=== PATIENT | male | born 1940 | race Caucasian/White ===

== ENCOUNTER 2017-09-01 08:18 | Emergency (ER) | payer MEDICARE, OTHER ==
[2017-09-01 08:18] VITALS: BMI 26.6
[2017-09-01 08:29] VITALS: RESP 20
--- NOTE | 2017-09-01 08:54 | C.PDOC ---
History Of Present Illness 77 y/o male with a history of diabetes, low BP, and a large prostate presents to the ED for chest pain. Patient reports last night he ate late and went to bed late. Upon waking he vomited once and felt dizzy. He reports feeling chest and back pain. His daughter took his blood pressure which showed to be low. She gave him nitro and called the ambulance. EMS arrived and found him to be hypotensive and diaphoretic. EMS gave him Aspirin. EMS took an EKG which showed normal sinus rhythm with no ST elevations. PMD: Dr. Mendoza Time Seen by Provider: 09/01/17 08:23 Chief Complaint (Nursing): Chest Pain History Per: Patient, EMS, Family (daughter) History/Exam Limitations: no limitations Onset/Duration Of Symptoms: Hrs Current Symptoms Are (Timing): Still Present Quality: "Pain" Associated Symptoms: Diaphoresis Recent travel outside of the [place]: No Past Medical History Reviewed: Historical Data, Nursing Documentation, Vital Signs Vital Signs: Last Vital Signs Temp 97.5 F L 09/01/17 14:20 Pulse 58 L 09/01/17 14:20 Resp 20 09/01/17 14:20 BP 124/69 09/01/17 14:20 Pulse Ox 98 09/01/17 14:20 - Medical History PMH: Asthma, Benign Prostatic Hyperplasia, Diabetes, Hypercholesterolemia Denies: Chronic Kidney Disease Surgical History: No Surg Hx Family History: States: Unknown Family Hx - Social History Hx Tobacco Use: No Hx Alcohol Use: No Hx Substance Use: No - Immunization History Hx Tetanus Toxoid Vaccination: Yes Hx Influenza Vaccination: Yes Hx Pneumococcal Vaccination: No Review Of Systems Except As Marked, All Systems Reviewed And Found Negative. Constitutional: Positive for: Sweats Cardiovascular: Positive for: Chest Pain, Other (low BP) Gastrointestinal: Positive for: Vomiting Musculoskeletal: Positive for: Back Pain Neurological: Positive for: Dizziness Physical Exam - Physical Exam Appears: Non-toxic, No Acute Distress Skin: Normal Color, Diaphoretic Head: Atraumatic, Normacephalic Eye(s): bilateral: Normal Inspection, PERRL, EOMI Neck: Normal Chest: Other (slightly reproducable chest pain) Cardiovascular: Rhythm Regular, No Murmur Respiratory: Normal Breath Sounds Gastrointestinal/Abdominal: Normal Exam, Soft, No Tenderness, No Distention Back: Normal Inspection, No CVA Tenderness Extremity: Normal ROM, No Pedal Edema Neurological/Psych: Oriented x3 ED Course And Treatment - Laboratory Results Result Diagrams: 09/01/17 08:58 09/01/17 08:58 Interpretation Of ECG: normal sinus rhythm, no ST elevations or depressions Rate From EC O2 Sat by Pulse Oximetry: 99 (RA) Pulse Ox Interpretation: Normal Medical Decision Making Medical Decision Making: Time: 08:21 Impression: chest pain, abdominal pain, r/o cardiac versus gastric cause Initial Plan: * EKG * B-Type Natriuretic * CMP * Troponin I Stat * CBC * Chest X-Ray Case discussed Dr. Padron. Patient has normal EKG and normal troponin levels. Plan is to repeat troponin and EKG. Possibly discharge home.second troponin wnl. Patient asymptomatic. cleared for discharge Scribe Attestation: Documented by Gene Nassar acting as a scribe Cyndie Trevino MD. MD Traoreibe Attestation: All medical record entries made by the Scribe were at my direction and personally dictated by me. I have reviewed the chart and agree that the record accurately reflects my personal performance of the history, physical exam, medical decision making, and the department course for this patient. I have also personally directed, reviewed, and agree with the discharge instructions and disposition. Disposition Discussed With : Hermelinda Padron Counseled Patient/Family Regarding: Studies Performed, Need For Followup - Disposition Disposition: HOME/ ROUTINE Disposition Time: 13:49 Condition: GUARDED Forms: [facility] ([place]) - POA Present On Arrival: None - Clinical Impression Clinical Impression: Vomiting
[2017-09-01 09:01] LABS: BASO # 0.1 K/uL (0.0-0.2); BASO % 0.6 % (0.0-2.0); EOS % 0.1 % (0.0-4.0); HEMOGLOBIN 14.1 g/dL (12.0-18.0); LYMPH # 1.3 K/uL (1.0-4.3); LYMPH % 12.9 % (20.0-40.0); MEAN CELL VOLUME 89.5 fL (80.0-94.0); MEAN CORPUSCULAR HEMOGLOBIN 30.4 pg (27.0-31.0); MEAN PLATELET VOLUME 9.7 fL (7.2-11.7); MONO # 0.5 K/uL (0.0-0.8); MONO % 5.1 % (0.0-10.0); NEUT % 81.3 % (50.0-75.0); RBC 4.62 Mil/uL (4.40-5.90); RED CELL DISTRIBUTION WIDTH 13.7 % (11.5-14.5); WHITE BLOOD COUNT 9.8 K/uL (4.8-10.8)
--- NOTE | 2017-09-01 09:06 | RAD ---
Chest x-ray single frontal view History: Chest pain. Comparison: 12/25/2015 Findings: Biapical pleural thickening. Scattered upper lobe granulomatous changes. Mild venous congestion. Right hilar prominence. Mild patchy increased markings at the bilateral lung bases. Tortuous ectatic aorta. Mild cardiomegaly. Degenerative changes in the spine and shoulders. Impression Biapical pleural thickening. Scattered upper lobe granulomatous changes. Mild venous congestion. Right hilar prominence. Mild patchy increased markings at the bilateral lung bases. Tortuous ectatic aorta. Mild cardiomegaly.
[2017-09-01 09:36] LABS: ALB/GLOB RATIO 1.2 (1.0-2.1); ALBUMIN 3.8 g/dL (3.5-5.0); ALT/SGPT 16 U/L (21-72); AST/SGOT 20 U/L (17-59); B-TYPE NATRIURETIC PEPTIDE 115 pg/mL (0-900); BLOOD UREA NITROGEN 13 mg/dL (9-20); CALCIUM 8.9 mg/dl (8.6-10.4); GFR AFRICAN-AMERICAN > 60; GFR NON-AFRICAN AMERICAN > 60
[2017-09-01 14:21] VITALS: BP 124/69; PULSE 58; TEMP 97.5
[2017-09-02 09:32] VITALS: O2SAT 99
--- NOTE | 2017-09-04 13:43 | CARD ---
APPROVED REPORT EKG Measurement Heart [id number] <Conclusion> Normal sinus rhythm Normal ECG
--- NOTE | 2017-09-04 13:44 | CARD ---
APPROVED REPORT EKG Measurement Heart [id number] [place] [id number] <Conclusion> Sinus bradycardia Otherwise normal ECG
== END 2017-09-01 14:26 | disposition home or self-care (01) ==
LOC: C.ER 08:18 → UNDOADMOB 13:24 → C.9E 13:24 → C.ER 14:26
DX: R11.10 Vomiting, unspecified (principal)